=== PATIENT | female | born 1975 | race American Indian/Alaskan Native ===

== ENCOUNTER 2019-01-12 10:30 | Emergency (ER) | payer OTHER ==
[2019-01-12 10:49] VITALS: BP 136/99
--- NOTE | 2019-01-12 12:59 | XRay Report ---
CHEST 2 VIEWS INDICATION / CLINICAL INFORMATION: productive cough. COMPARISON: None available. FINDINGS: SUPPORT DEVICES: None. HEART / MEDIASTINUM: No significant abnormality. LUNGS / PLEURA: No significant pulmonary or pleural abnormality. No pneumothorax. ADDITIONAL FINDINGS: No significant additional findings. IMPRESSION: No acute findings. Signer Name: Rocky Vasquez MD Signed: 01/12/2019 12:55 PM Workstation Name: [id number]
--- NOTE | 2019-01-12 13:17 | Emergency Department Report ---
- General Chief Complaint: Upper Respiratory Infection Stated Complaint: COUGH/SINUS/HEADACHE Time Seen by Provider: 01/12/19 12:11 Source: patient Mode of arrival: Ambulatory Limitations: No Limitations - History of Present Illness Initial Comments: Patient is a 43-year-old female who's had cough, congestion for approximately 10 days. Patient states cough is productive of yellow sputum. Patient's has some rhinorrhea and facial congestion. Patient said possible fevers as well. Patient denies nausea vomiting diarrhea sore throat or neck stiffness. - Related Data Previous Rx's Medication Instructions Recorded Last Taken Type ALBUTEROL Inhaler (OR & NICU) 2 puff IH QID PRN #1 inhalation 01/12/19 Unknown Rx [ProAir HFA Inhaler] Azithromycin [Zithromax Z-ALFREDITO] 250 mg PO DAILY #6 tablet 01/12/19 Unknown Rx predniSONE [Deltasone] 20 mg PO QDAY #5 tab 01/12/19 Unknown Rx Allergies Allergy/AdvReac Type Severity Reaction Status Date / Time No Known Allergies Allergy Unverified 01/12/19 10:45 ED Review of Systems ROS: Stated complaint: COUGH/SINUS/HEADACHE Other details as noted in HPI Comment: All other systems reviewed and negative ED Past Medical Hx - Past Medical History Previous Medical History?: Yes Hx Hypertension: Yes - Surgical History Past Surgical History?: Yes Additional Surgical History: tubal ligation foot surgery - Social History Smoking Status: Never Smoker Substance Use Type: None - Medications Home Medications: Home Medications Medication Instructions Recorded Confirmed Last Taken Type ALBUTEROL Inhaler (OR & NICU) 2 puff IH QID PRN #1 inhalation 01/12/19 Unknown Rx [ProAir HFA Inhaler] Azithromycin [Zithromax Z-ALFREDITO] 250 mg PO DAILY #6 tablet 01/12/19 Unknown Rx predniSONE [Deltasone] 20 mg PO QDAY #5 tab 01/12/19 Unknown Rx ED Physical Exam - General Limitations: No Limitations General appearance: alert, in no apparent distress - Head Head exam: Present: atraumatic, normocephalic - Eye Eye exam: Present: normal appearance - ENT ENT exam: Present: mucous membranes moist - Neck Neck exam: Present: normal inspection - Respiratory Respiratory exam: Present: normal lung sounds bilaterally, rhonchi. Absent: respiratory distress, wheezes, rales, stridor - Cardiovascular Cardiovascular Exam: Present: regular rate, normal rhythm. Absent: systolic murmur, diastolic murmur, rubs, gallop - GI/Abdominal GI/Abdominal exam: Present: soft, normal bowel sounds. Absent: distended, tenderness, guarding, rebound - Extremities Exam Extremities exam: Present: normal inspection - Back Exam Back exam: Present: normal inspection - Neurological Exam Neurological exam: Present: alert, oriented X3 - Psychiatric Psychiatric exam: Present: normal affect, normal mood - Skin Skin exam: Present: warm, dry, intact, normal color. Absent: rash ED Course Vital Signs 01/12/19 10:47 Temperature 98.4 F Pulse Rate 97 H Respiratory 20 Rate Blood Pressure 136/99 O2 Sat by Pulse 100 Oximetry ED Medical Decision Making - Radiology Data Radiology results: report reviewed - Medical Decision Making Patient is a 43-year-old Female presenting with a productive cough for 10 days. Patient did have some scattered rhonchi that cleared with coughing. Patient be started on meds for symptomatic relief be discharged home. Critical care attestation.: If time is entered above; I have spent that time in minutes in the direct care of this critically ill patient, excluding procedure time. ED Disposition Clinical Impression: Upper respiratory infection Qualifiers: URI type: unspecified URI Qualified Code(s): J06.9 - Acute upper respiratory infection, unspecified Disposition: - TO HOME OR SELFCARE Is pt being admited?: No Does the pt Need Aspirin: No Condition: Stable Instructions: Upper Respiratory Infection (ED) Referrals: SUZY MAE MD [Primary Care Provider] - 3-5 Days Time of Disposition: 13:17
== END 2019-01-12 14:03 | disposition home or self-care (01) ==
LOC: ED 10:30
DX: J06.9 Acute upper respiratory infection, unspecified (principal); I10 Essential (primary) hypertension; Z98.51 Tubal ligation status; Z79.899 Other long term (current) drug therapy
CPT/HCPCS: 71046